=== PATIENT | female | born 1965 | race Caucasian/White ===

== ENCOUNTER 2019-05-07 13:48 | Outpatient (RCR) | payer OTHER, SELFPAY | END 2019-05-09 23:59 | disposition home or self-care (01) | LOC: SPT 13:48 | PROVIDERS: Family Provider Family Medicine; PCP Family Medicine; Referring Provider Family Medicine; Visit Provider Family Medicine | DX: M54.5 Low back pain (principal) | CPT/HCPCS: 97110; 97161 ==

== ENCOUNTER 2019-05-10 06:00 | Outpatient (RCR) | payer OTHER, SELFPAY | END 2019-06-07 23:59 | disposition home or self-care (01) | LOC: SPT 06:00 | PROVIDERS: Family Provider Family Medicine; PCP Family Medicine; Referring Provider Family Medicine; Visit Provider Family Medicine | DX: M54.5 Low back pain (principal); M25.551 Pain in right hip; M54.17 Radiculopathy, lumbosacral region | CPT/HCPCS: 97110 ==

== ENCOUNTER 2019-06-08 06:00 | Outpatient (RCR) | payer OTHER, SELFPAY | END 2019-07-08 23:59 | disposition home or self-care (01) | LOC: SPT 06:00 | PROVIDERS: Family Provider Family Medicine; PCP Family Medicine; Referring Provider Family Medicine; Visit Provider Family Medicine | DX: M54.5 Low back pain (principal); M25.551 Pain in right hip; M54.17 Radiculopathy, lumbosacral region | CPT/HCPCS: 97110 ==

== ENCOUNTER 2019-11-19 13:36 | Outpatient (CLI) | payer OTHER, SELFPAY ==
--- NOTE | 2019-11-19 13:47 | MM_ITS ---
WS: [id number] BILATERAL DIGITAL DIAGNOSTIC MAMMOGRAM WITH CAD CLINICAL INFORMATION: BREAST CALCIFICATIONS COMPARISON: TECHNIQUE: Bilateral CC and MLO. FINDINGS: The breast are composed of extremely dense tissue, which can limit the detection of small underlying mass lesions. Again seen is a loose cluster of punctate calcifications in the upper outer quadrant ri ght breast. Stable clustered group of calcifications in the mid central right breast. These appear st able since August 26, 2018 and are similar in appearance to April 12, 2016. Recommend return to annual screening mammography. No suspicious focal mass, asymmetry, calcifications, or architectural distortion. No evidence of blessing gnancy. Unremarkable left breast. MM/[place] [id number] IMPRESSION: BI-RADS: 2-Benign FOLLOW UP: 1 Year Follow-up Recommend return to annual screening mammography.
== END 2019-11-19 13:37 | disposition home or self-care (01) ==
LOC: RADSHAW 13:39
PROVIDERS: PCP Family Medicine; Visit Provider Family Medicine
DX: R92.1 Mammographic calcification found on diagnostic imaging of breast (principal)
CPT/HCPCS: 77066

== ENCOUNTER → 2020-03-13 10:07 | Outpatient (BNVA) | payer OTHER, SELFPAY | PROVIDERS: PCP Family Medicine; Visit Provider Orthopaedic Surgery | DX: Z20.828 Contact with and (suspected) exposure to other viral communicable diseases (principal); Z01.812 Encounter for preprocedural laboratory examination | CPT/HCPCS: 87635 ==

== ENCOUNTER 2020-03-18 09:50 | Day surgery (SDC) | payer OTHER, SELFPAY ==
[2020-03-17 13:12] VITALS: BMI 24.3
[2020-03-18 10:28] VITALS: BP 127/75; PULSE 62; RESP 18; TEMP 36.8; O2SAT 97
--- NOTE | 2020-03-18 10:35 | W.PM.OPSUD ---
Surgery/Procedure H&P Update DATE OF PROCEDURE: March 18, 2020 PREOP DIAGNOSIS: Left cubital tunnel syndrome, left carpal tunnel syndrome PLANNED PROCEDURE: Operation Date: 03/18/20 11:05 Proposed Procedures p Ulnar Nerve Transposition [id number] G56.22(Left) - Raghu Garza MD s Carpal Tunnel Release(Left) - Raghu Garza MD
--- NOTE | 2020-03-18 10:35 | ANES.PREANE2 ---
Pre-Anesthetic Assessment Pre-Anesthetic Assessment: Height/Weight: Height 1.78 m Weight 77.111 kg Temp Pulse Resp BP Pulse Ox 98.3 F 62 18 127/75 97 03/18/20 10:28 03/18/20 10:28 03/18/20 10:28 03/18/20 10:28 03/18/20 10:28 Preop Diagnosis: Left cubital tunnel syndrome, left carpal tunnel syndrome Proposed Procedure: Operation Date: 03/18/20 11:05 Proposed Procedures p Ulnar Nerve Transposition [id number] G56.22(Left) - Raghu Garza MD s Carpal Tunnel Release(Left) - Raghu Garza MD Familial anesthetic complications: None Was Beta Charly taken within 24 hours: Yes Last intake: Intake Last Liquid Date 03/17/20 Last Liquid Time 19:30 Last Solid Date 03/17/20 Last Solid Time 21:30 Social: Social History: No alcohol and No tobacco Exam: Pre-Anes Outpt Exam: alert, oriented x 3, clear to auscultation bilaterally and regular rate & rhythm Airway: Cervical ROM: WNL MP: 2 Dentition: Full CV/HEM: CV/HEM: HTN Neuropsych: Comments: carpal tunnel and cubital tunnel Anesthetic Plan: ASA status: 1 Anesthesia: MAC and Regional (specify below) Other: kolton block Risk of > 500 ml blood loss (7ml/kg in children): No Data Anesthesia Cardiac Studies: No Data to Display
--- NOTE | 2020-03-18 10:37 | P.HP_ITS ---
Same Day Surgery H&P Indication for Procedure/HPI DATE OF PROCEDURE: March 18, 2020 CHIEF COMPLAINT/INDICATIONFOR SURGICAL PROCEDURE: Vivienne is a 54-year-old female with numbness and pain in her left upper extremity and feelings of popping behind the medial epicondyle. EMG nerve conduction studies were obtained showing carpal tunnel syndrome and her clinical exam was thought consistent with a subluxing ulnar nerve with resulting ulnar nerve distribution paresthesias. She is scheduled for a ulnar nerve transposition and carpal tunnel release on the left PREOP DIAGNOSIS: Left cubital tunnel syndrome, left carpal tunnel syndrome PLANNED PROCEDRUE: Operation Date: 03/18/20 11:05 Proposed Procedures p Ulnar Nerve Transposition [id number] G56.22(Left) - Raghu Garza MD s Carpal Tunnel Release(Left) - Raghu Garza MD Medications/Allergies* Home Medications Medication Instructions Recorded Confirmed Type hydrochlorothiazide 12.5 mg capsule 12.5 mg PO QAM 04/29/19 03/18/20 History metoprolol tartrate 25 mg tablet 12.5 mg PO BID 04/29/19 03/18/20 History Allergies/Adverse Reactions Allergy/AdvReac Type Severity Reaction Status Date / Time No Known Allergies Allergy Verified 01/05/20 11:22 Pertinent Exam Findings alert, oriented x 3, clear to auscultation bilaterally, regular rate & rhythm, operative site marked and procedure specific exam findings (Left elbow ROM 0-140 degrees. 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
--- NOTE | 2020-03-18 10:42 | PM.OP ---
Operative Report Date of procedure: March 18, 2020 Pre-op Diagnosis: Left cubital tunnel syndrome, left carpal tunnel syndrome Post-op diagnosis: same Post-op Findings: Unstable left ulnar nerve Procedure Done: Left ulnar nerve transposition, carpal tunnel release Pathology: none sent Anesthesia: Nerve Block ([place] [address] block) Estimated blood loss (mL): 20 Tourniquet time (min): 36 Complications: None Findings: Flexion extension of the elbow the patient's ulnar nerve subluxed over the medial epicondyle. No spaces or mass occupying lesions were seen in the cubital tunnel or carpal tunnel Condition: stable Disposition: PACU Brief History: The patient has a history of a popping behind the medial epicondyle with radiating pain into her medial forearm. She had a positive Tinel's over the ulnar nerve at the elbow and carpal tunnel at the wrist. EMG nerve conduction is absent revealed severe nerve entrapment of the median nerve at the carpal tunnel. She had previous right carpal tunnel surgery years ago and did well and has elected for right carpal tunnel release and ulnar nerve transposition of her unstable ulnar nerve Procedure: The patient was taken to the operating room and given a general anesthesia. A tourniquet was inflated to 225 mmHg. A timeout was performed. A 5 cm long incision was made behind the medial epicondyle. The elbow was brought through range of motion with the ulnar nerve seem to sublux over the medial epicondyle. Dissection was accomplished bluntly under loupe magnification identifying the ulnar nerve proximally. Utilizing a hemostat the fascia over the nerve was elevated and incised proximally. Dissection was then carried distally behind the medial epicondyle and into the flexor carpi ulnaris musculature. Dissection was stopped with the first muscular branches identified. The fascia was divided over the flexor pronator musculature. Approximately 2 cm of medial intermuscular septum were dissected and the nerve reflected anteriorly in a tension-free resting place. A small fascial flap was elevated off the flexor pronator musculature with this attachment over the medial epicondyle. This was sutured to the anterior subcutaneous tissue to prevent recurrent subluxation of the nerve. Wound edges were infiltrated with 10 cc of a half percent Marcaine solution. Deep tissues were closed with 2-0 Vicryl. Subcutaneous is closed with 3-0 Vicryl. The skin was closed with a running 3-0 Prolene. Steri-Strips were applied. Xeroform gauze, 4 x 4's, compressive labral, and Alex wrap, and a sling were applied. The patient was taken recovery room in stable condition. A 3 cm long incision was made in line with the fourth ray from the distal edge of the carpal tunnel extending proximally. The subcutaneous fat and palmar fascia was divided with a scalpel blade. Under loupe magnification the ulnar neurovascular bundle was identified distally. A hemostat could be passed under the transverse carpal ligament allowing the distal 25% to be divided. A slotted guide was then passed beneath the transverse carpal ligament and the middle 50% divided. Blunt scissors were then passed over the guide freeing the proximal ligament. The tourniquet was deflated. Hemostasis provided with electrocautery. Wound edges were infiltrated with 10 cc of a half percent Marcaine solution. All wounds were irrigated with saline. Skin edges were reapproximated with 3-0 Prolene. A running stitch was placed over the medial epicondyle and interrupted stitches over the carpal tunnel. Sterile dressings were applied. Patient was placed in a sling. The patient was taken to the recovery room in stable condition
[2020-03-18] MEDS: sodium chloride 0.9% 1,000 ML 30 ML IV (10:52)
[2020-03-18 12:15] VITALS: BP 122/71; PULSE 64; RESP 18; TEMP 36.1; O2SAT 98
[2020-03-18 12:24] VITALS: BP 149/70; PULSE 65; RESP 18; O2SAT 100
== END 2020-03-18 13:14 | disposition home or self-care (01) ==
PROVIDERS: PCP Family Medicine; Visit Provider Orthopaedic Surgery
PROC: (CPT 64718; principal; 2020-03-18 11:05)
PROC: (CPT 64721; 2020-03-18 11:05)
DX: G56.22 Lesion of ulnar nerve, left upper limb (principal); G56.02 Carpal tunnel syndrome, left upper limb; I10 Essential (primary) hypertension
CPT/HCPCS: 64718; 64721; 12345; 96365; J0690; J2250; J3490; J7030

== ENCOUNTER 2020-05-03 13:47 | Outpatient (RCR) | payer OTHER, SELFPAY | END 2020-05-09 23:59 | disposition home or self-care (01) | LOC: SOT 13:47 | PROVIDERS: PCP Family Medicine; Referring Provider Orthopaedic Surgery; Visit Provider Orthopaedic Surgery | DX: Z47.89 Encounter for other orthopedic aftercare (principal) | CPT/HCPCS: 97035; 97110; 97112; 97140; 97167 ==

== ENCOUNTER 2020-05-10 06:00 | Outpatient (RCR) | payer OTHER, SELFPAY | END 2020-06-06 23:59 | disposition home or self-care (01) | LOC: SOT 06:00 | PROVIDERS: PCP Family Medicine; Referring Provider Orthopaedic Surgery; Visit Provider Orthopaedic Surgery | DX: Z47.89 Encounter for other orthopedic aftercare (principal) | CPT/HCPCS: 97022; 97035; 97110; 97112 ==

== ENCOUNTER 2021-03-09 14:26 | Emergency (ER) | payer OTHER, SELFPAY ==
[2021-03-09 14:43] VITALS: BP 144/80; PULSE 91; RESP 19; TEMP 36.4; O2SAT 100; BMI 25.1
--- NOTE | 2021-03-09 15:03 | XRR_ITS ---
PROCEDURE INFORMATION: Exam: XR Lumbosacral Spine Exam date and time: 03/09/2021 3:03 PM Age: 55 years old Clinical indication: Pain and injury or trauma; Fall; Blunt trauma (contusions or hematomas); Low back pain; Injury date: 2 weeks ago; Patient HX: Fell two weeks ago, pain started today gradually getting worse TECHNIQUE: Imaging protocol: XR of the lumbosacral spine. Views: 2 or 3 views. Total images: 3 COMPARISON: MRI Lumbar Spine w/o [id number] 12/01/2019 1:55 PM FINDINGS: Bones/joints: No visible acute osseous abnormality. Mild dextroscoliotic curvature. Pedicles intact. No visible spondylolysis or spondylolisthesis. Facet arthrosis L5/S1. Mild degenerative disc disease L5/S1. Mild spondylosis deformans. Soft tissues: Unremarkable. XR/XR lumbar spine 2-3V* [id number] IMPRESSION: Nonacute. Radiation Dose CTDIVOL = (mGy): DLP = (mGy-cm)
--- NOTE | 2021-03-09 15:03 | XRR_ITS ---
PROCEDURE INFORMATION: Exam: XR Thoracic Spine Exam date and time: 03/09/2021 3:03 PM Age: 55 years old Clinical indication: Pain and injury or trauma; Fall; Blunt trauma (contusions or hematomas); Pain in thoracic spine; Injury date: 2 weeks ago; Patient HX: Fell two weeks ago, pain started today gradually getting worse TECHNIQUE: Imaging protocol: XR of the thoracic spine. Views: 3 views. Total images: 3 COMPARISON: MRI Lumbar Spine w/o [id number] 12/01/2019 1:55 PM FINDINGS: Bones/joints: Nonacute. Pedicles intact. Minimal scoliotic curvature. Intervertebral disc space heights relatively preserved throughout. Mild degenerative disease and spondylosis deformans. No visible spondylolysis or spondylolisthesis. Soft tissues: Unremarkable. XR/XR thoracic spine 3V* [id number] IMPRESSION: Nonacute. Radiation Dose CTDIVOL = (mGy): DLP = (mGy-cm)
--- NOTE | 2021-03-09 15:04 | XRR_ITS ---
PROCEDURE INFORMATION: Exam: XR Left Hip Exam date and time: 03/09/2021 3:04 PM Age: 55 years old Clinical indication: Pain and injury or trauma; Fall; Blunt trauma (contusions or hematomas); Hip pain; Left hip; Injury date: 2 weeks ago; Patient HX: Fell two weeks ago, pain started today gradually getting worse; Additional info: Pain, fall TECHNIQUE: Imaging protocol: XR Left hip. Views: 2 or 3 views hip with pelvis when performed. Total images: 3 COMPARISON: MRI Lumbar Spine w/o [id number] 12/01/2019 1:55 PM FINDINGS: Bones/joints: No visible acute osseous abnormality, fracture, subluxation, or dislocation. No radiographically visible joint effusion. Incidental note of facet arthrosis L5/S1. Soft tissues: Soft tissues without evidence of edema, swelling, contusion, emphysema, or radiopaque foreign body. Gastrointestinal tract: Incidental note of heavy fecal residue consistent with constipation. XR/XR hip LT 2-3V wo/w pel* [id number] IMPRESSION: Nonacute. Radiation Dose CTDIVOL = (mGy): DLP = (mGy-cm)
--- NOTE | 2021-03-09 15:05 | ED_ITS ---
HPI - Extremity Problem General: Chief complaint: Extremity Injury, Upper Stated complaint: L HIP/LOW BACK PAIN: FELL 5 DAYS AGO,SX WORSENING Time Seen by Provider: 03/09/21 14:59 History of Present Illness: HPI Narrative: Patient reports history of 2 falls first 1 2 weeks ago when she tripped over a metal piece and landed on her left knee and she started hurting a couple days later in her low back. Patient fell again 3 days ago landing on the right knee and she did not hurt immediately but hurt the next day complain about pain in her left hip and her back. Says she had an MRI done a year ago told she had degenerative disc disease and she feels that she might worsen this. Was seen at [facility] and referred up here. Onset (ago): week(s) Pain Consistency: constant Location: left Severity scale (1-10): 7 Quality: aching Radiation: proximal and distal Relieving factors: immobilization Exacerbating factors: range of motion, weight bearing and walking Associated symptoms: Reports no associated symptoms; Deny chest pain, fever(s) or rash Review of Systems Const: Denies: fever(s), chills or body aches Eyes: Denies: change in vision or blurry vision ENMT: Denies: throat pain or nasal congestion Card: Denies: chest pain or dyspnea on exertion Resp: Denies: dyspnea, productive cough or non-productive cough GI: Denies: abdominal pain, nausea or vomiting Musc: Reports: back pain and joint pain (Left hip); Denies: extremity pain Skin/Breast: Denies: rash Neuro: Denies: headache(s) Psych: Denies: anxiety or depression Shane/Lymph: Denies: easy bruising Physical Exam Const: COMMON NORMALS: no acute distress, average body habitus and patient oriented x3 HENMT: COMMON NORMALS: normocephalic HEAD & SCALP: normal to inspection and normocephalic FACE & SINUS: normal facial exam Eye: COMMON NORMALS: conjunctivae normal GENERAL EYE: appearance normal, both eyes and all related structures CONJUNCTIVA: Yes conjunctivae normal Neck/C-Spine: COMMON NORMALS: no JVD Chest: COMMONS NORMALS: normal inspection of the chest Resp: COMMON NORMALS: normal respiratory effort and clear to auscultation bilaterally AUSCULTATION: clear to auscultation bilaterally Cardio: COMMON NORMALS: no JVD, regular rate and regular rhythm RATE: regular rate RHYTHM: regular rhythm GI: COMMON NORMALS: Normal to inspection, nondistended, normoactive bowel sounds present : COMMON NORMALS: Yes no CVA tenderness BLADDER/KIDNEY EXAM: Yes no CVA tenderness Back/Pelvis: COMMON NORMALS: no CVA tenderness THORACIC SPINE/UPPER BACK: Yes paraspinal muscle tenderness LUMBAR SPINE/LOWER BACK: Yes normal to inspection, Yes lumbar ROM normal and Yes paraspinal muscle tenderness Extremity: COMMON NORMALS: normal to inspection and full ROM LEFT LOWER EXTREMITY: Yes hip joint (Tenderness to anterior aspect has full range of motion.) Neuro: COMMON NORMALS: patient oriented x3 Course Vital Signs: Vital signs: Vital Signs Temperature 97.6 F 03/09/21 14:43 Pulse Rate 70 03/09/21 16:23 Respiratory Rate 18 03/09/21 16:23 Blood Pressure 121/79 03/09/21 16:23 Pulse Oximetry 98 03/09/21 16:23 MDM - Extremity (Nontraumatic) MDM Narrative: Medical decision making narrative: Patient presents with chronic back pain. Aggravated by couple falls she has had over the last 2 weeks. Patient being cared for currently by Dr. Garza and she relates that he is not helping her much with her related to her back and knees pain. Patient's x-rays were negative for any acute fractures and showed just mild degenerative disc disease most likely in the lumbar and thoracic spine. Patient is able to ambulate. Pain medication seem to help her some. Discharge Plan Discharge Patient Disposition: Home Clinical Impression: Hip pain, left Back pain Qualifiers: Back pain location: low back pain Chronicity: unspecified Back pain laterality: left Sciatica presence: without sciatica Qualified Code(s): M54.50 - Low back pain, unspecified Condition: Stable Prescriptions: New prednisone 20 mg tablet 20 mg PO DAILY Qty: 7 RF: 0 Celebrex 100 mg capsule 200 mg PO BID Qty: 20 RF: 0 No Action metoprolol tartrate 25 mg tablet 12.5 mg PO BID RF: 0 hydrochlorothiazide 12.5 mg capsule 12.5 mg PO QAM RF: 0 hydrocodone-acetaminophen 5-325 mg tablet 1 tab PO Q4H Qty: 30 RF: 0 Discharge Orders: Discharge ED (Routine); Ordered 03/09/21 Ordered By: Homero Moreland Referrals: Lucrecia Nagy MD [Primary Care Provider] - Discharge Diet: Usual diet Discharge Activity: Increase activity as tolerated Patient Instructions: Back Pain (ED), Hip Pain (ED) Activity Restrictions/Additional Instructions: Follow-up with medical provider as directed. Take medications as prescribed. Return to the ER or your medical provider if condition worsens. Please read and understand discharge instructions. If any questions ask please. Coding Level of Care Code ED Dependency Director for Chg Fwd Exam Comprehensive
[2021-03-09 15:07] VITALS: PULSE 84
[2021-03-09] MEDS: CELEcoxib 200 mg Capsule 400 MG PO (15:11)
--- NOTE | 2021-03-09 15:37 | PC.NURSE ---
pt to xray
[2021-03-09 16:23] VITALS: BP 121/79; PULSE 70; RESP 18; O2SAT 98
== END 2021-03-09 16:56 | disposition home or self-care (01) ==
PROVIDERS: Emergency Provider Nurse Practitioner Family; PCP Family Medicine
DX: M54.50 Low back pain, unspecified (principal); M25.552 Pain in left hip
CPT/HCPCS: 72072; 72100; 73502; 96365; 96367; 96375; 99283

== ENCOUNTER 2021-03-21 12:22 | Outpatient (CLI) | payer OTHER, SELFPAY ==
--- NOTE | 2021-03-21 13:05 | MM_ITS ---
WS: [id number] BILATERAL DIGITAL SCREENING MAMMOGRAPHY WITH CAD CLINICAL INFORMATION: SCREEN HISTORY: Screening mammogram. No current complaints. COMPARISON: None. TECHNIQUE: Bilateral CC and MLO views. FINDINGS: The breasts are composed of heterogeneous fibroglandular density tissue, which can limit the detectio n of small underlying mass lesions. Punctate and lucent centered calcifications. Stable clustered jacky cifications right breast. No suspicious mass, asymmetry, calcifications, or architectural distortion. No evidence of malignancy. MM/[place] [id number] IMPRESSION: BI-RADS: 2-Benign FOLLOW UP: 1 Year Follow-up Recommend return to annual screening mammography.
== END 2021-03-21 12:23 | disposition home or self-care (01) ==
LOC: RADSHAW 12:27
PROVIDERS: PCP Family Medicine; Visit Provider Family Medicine
DX: Z12.31 Encounter for screening mammogram for malignant neoplasm of breast (principal)
CPT/HCPCS: 77067

== ENCOUNTER 2021-05-25 13:49 | Outpatient (CLI) | payer OTHER, SELFPAY ==
--- NOTE | 2021-05-25 13:53 | MR_ITS ---
WS: [id number] MRI LEFT HIP without CONTRAST. COMPARISON: 03/09/2021 Multiplanar, multisequence imaging is performed without contrast. No marrow edema or fracture within the bones of the pelvis. There is a symmetric appearance of the hi p joints with very mild narrowing from osteoarthritis. No joint effusion. No fluid over the greater t rochanter. There is symmetric appearance of the muscles. No adenopathy. No marrow replacement process . Very mild loss of cartilage involving the femoral head in the acetabulum. No labral tear. MR/MR hip LT con* [id number] IMPRESSION: 1. No marrow edema or fracture LEFT hip. 2. Very minimal joint space narrowing and loss of cartilage involving the LEFT hip joint.
== END 2021-05-25 13:50 | disposition home or self-care (01) ==
LOC: RAD 13:51
PROVIDERS: PCP Family Medicine; Visit Provider Physician Assistant
DX: M25.552 Pain in left hip (principal)
CPT/HCPCS: 73721

== ENCOUNTER → 2024-07-16 13:44 | Outpatient (BNVA) | payer OTHER, SELFPAY | PROVIDERS: PCP Family Medicine; Visit Provider Podiatrist Foot & Ankle Surgery | DX: M79.671 Pain in right foot (principal); M84.30XA Stress fracture, unspecified site, initial encounter for fracture; M79.673 Pain in unspecified foot; S93.311A Subluxation of tarsal joint of right foot, initial encounter; X58.XXXA Exposure to other specified factors, initial encounter | CPT/HCPCS: 73630 ==

== ENCOUNTER 2024-07-21 11:38 | Outpatient (CLI) | payer OTHER, SELFPAY ==
--- NOTE | 2024-07-21 12:15 | MR_ITS ---
WS: [id number] EXAMINATION: MR foot RT wo con* [id number] ORDER DATE: 07/21/2024 12:26 PM HISTORY: pain in right heel CONTRAST: None. TECHNIQUE: Sagittal T1, sagittal STIR, coronal PD, coronal T2, axial T1, axial T2, and axial PD imaging with fat saturation technique. FINDINGS: Slight plantar calcaneal spurring. Diffuse soft tissue edema involving the plantar aponeurosis. Mild bone marrow edema at the calcaneal insertion. Thickening with associated soft tissue edema and fluid about the medial head plantar fascia insertion with underlying edema in the calcaneus. Findings compatible with planter fasciitis. Plantar fascia measures approximately 6 mm. Distal Achilles is normal in appearance. Normal peroneal tendons and tendon sheath. Normal extensor and flexor compartment tendons. Mild degenerative arthritis in the midfoot and forefoot. Medial and lateral malleolus appear intact. Talar dome is normal. Small joint effusion. Small amount of subchondral edema likely degenerative involving the cuboid at the cubocalcaneal articulation. MR/MR foot RT wo con* [id number] IMPRESSION: Findings compatible with plantar fasciitis involving the medial insertion with associated fluid and edema described above.
== END 2024-07-21 11:39 | disposition home or self-care (01) ==
PROVIDERS: PCP Family Medicine; Visit Provider Podiatrist Foot & Ankle Surgery
DX: M84.374A Stress fracture, right foot, initial encounter for fracture (principal); R93.6 Abnormal findings on diagnostic imaging of limbs; R60.0 Localized edema; M19.071 Primary osteoarthritis, right ankle and foot
CPT/HCPCS: 73718

== ENCOUNTER → 2024-09-15 16:58 | Outpatient (BNVA) | payer OTHER, SELFPAY | PROVIDERS: PCP Family Medicine; Visit Provider Podiatrist Foot & Ankle Surgery | DX: M72.2 Plantar fascial fibromatosis (principal); S93.311A Subluxation of tarsal joint of right foot, initial encounter; X58.XXXA Exposure to other specified factors, initial encounter | CPT/HCPCS: 36415; 85651; 86140; 86160; 86162; 86200; 86235; 86255; 86376; 86431 ==

== ENCOUNTER 2024-10-22 12:27 | Outpatient (RCR) | payer OTHER, SELFPAY | END 2024-11-06 23:59 | disposition home or self-care (01) | LOC: SPT 12:27 | PROVIDERS: Visit Provider Podiatrist Foot & Ankle Surgery | DX: M72.2 Plantar fascial fibromatosis (principal); M25.571 Pain in right ankle and joints of right foot | CPT/HCPCS: 97033; 97110; 97140; 97161 ==

== ENCOUNTER 2024-11-07 06:30 | Outpatient (RCR) | payer OTHER, SELFPAY | END 2024-12-07 23:59 | disposition home or self-care (01) | LOC: SPT 06:30 | PROVIDERS: Visit Provider Podiatrist Foot & Ankle Surgery | DX: M72.2 Plantar fascial fibromatosis (principal); M25.571 Pain in right ankle and joints of right foot | CPT/HCPCS: 97033; 97110; 97140 ==

== ENCOUNTER 2024-12-08 05:00 | Outpatient (RCR) | payer OTHER, SELFPAY | END 2024-12-29 09:55 | disposition home or self-care (01) | LOC: SPT 05:00 | PROVIDERS: Visit Provider Podiatrist Foot & Ankle Surgery | DX: M72.2 Plantar fascial fibromatosis (principal); M25.571 Pain in right ankle and joints of right foot | CPT/HCPCS: 97033; 97110; 97140 ==

== ENCOUNTER 2025-01-19 14:09 | Outpatient (CLI) | payer OTHER, SELFPAY ==
--- NOTE | 2025-01-19 14:19 | MRR_ITS ---
PROCEDURE INFORMATION: Exam: MR Right Lower Extremity Joint Without and With Contrast; Ankle Exam date and time: 01/19/2025 3:39 PM Age: 59 years old Clinical indication: Ankle; Right; History of plantar fasciitis/foot pain. Pain with walking; Additional info: Primary osteoarthritis R ankle/pain in R foot/stress FX TECHNIQUE: Imaging protocol: Magnetic resonance imaging of the right lower extremity without and with contrast. Exam focused on the ankle. Contrast material: MULTIHANCE; Contrast volume: 17 ml; Contrast route: INTRAVENOUS (IV); COMPARISON: MR foot RT wo/w con [id number] 01/19/2025 2:56 PM FINDINGS: Bones/joints: There is reactive marrow edema and enhancement within the base of the 3rd and 4th metatarsal as well as the proximal diaphysis of the 3rd and 4th metatarsal at the edge of the [id number]. LIGAMENTS: Distal tibiofibular syndesmosis: Unremarkable. No tear. Anterior talofibular ligament: Unremarkable. No tear. Posterior talofibular ligament: Unremarkable. No tear. Calcaneofibular ligament: Unremarkable. No tear. Deltoid ligament complex: Unremarkable. No tear. TENDONS: Flexor tendons of foot: Unremarkable as visualized. Tibialis posterior tendon: Unremarkable as visualized. Peroneal tendons: Unremarkable as visualized. Extensor tendons of foot: Unremarkable as visualized. Tibialis anterior tendon: Unremarkable as visualized. Achilles tendon: Unremarkable as visualized. Tarsal canal (Sinus tarsi): Unremarkable. Normal signal of the fat. Tarsal tunnel: Unremarkable. Soft tissues: There is diffuse fatty replacement and atrophy of the abductor digiti minimi muscle. Plantar fascia: There is prominent thickening and heterogenous increased T2 signal in the plantar fascia at the calcaneal attachment. There appears to be a chronic stable longitudinal split tear of the plantar fascia in its mid aspect. There is midfoot polyarticular degenerative osteoarthropathy with marginal periarticular osteophytosis present. MR/MR ankle RT wo/w con [id number] IMPRESSION: 1. Nonspecific reactive marrow changes within the base and proximal diaphysis of the 3rd and 4th metatarsal. This certainly may represent stress reaction or posttraumatic marrow edema in the appropriate clinical setting. Consider MRI of the foot as this is only partially visualized on this exam of the ankle. 2. Plantar fasciitis with prominent fascial thickening and heterogenous edema at the calcaneal attachment. 3. Midfoot polyarticular degenerative osteoarthropathy.
--- NOTE | 2025-01-19 14:26 | MRR_ITS ---
PROCEDURE INFORMATION: Exam: MR Right Lower Extremity Other Than Joint Without and With Contrast; Foot Exam date and time: 01/19/2025 2:56 PM Age: 59 years old Clinical indication: Pain; Foot; Right; Additional info: Primary osteoarthritis R ankle/pain in R foot/stress FX TECHNIQUE: Imaging protocol: Magnetic resonance imaging of the right lower extremity without and with contrast. Exam focused on the foot. Contrast material: MULTIHANCE; Contrast volume: 17 ml; Contrast route: INTRAVENOUS (IV); COMPARISON: MR foot RT wo con* [id number] 07/21/2024 12:38 PM FINDINGS: Increased signal intensity T2 weighted imaging and STIR imaging proximal shaft, proximal metaphysis and proximal shaft of the 3rd metatarsal, proximal shaft proximal metaphysis of the 4th metatarsal mild increased signal intensity proximal metaphysis and shaft of the metatarsal. Nondisplaced oblique fracture involving the proximal epiphysis and proximal metaphysis of the 3rd metatarsal. This extends through proximal articular surface into the 3rd tarsometatarsal articulation. No widening of the joint. No significant effusion. Adjacent soft tissue edema in this area. Tarsometatarsal are intact. Mild degenerative changes 1st MTP joint. MR/MR foot RT wo/w con [id number] IMPRESSION: 1. Nondisplaced oblique fracture involving the proximal metaphysis and epiphysis of the 3rd metatarsal with intra-articular extension. 2. Associated soft tissue edema.
[2025-01-19] MEDS: gadobenate dimeglumine 20 mL vial IV (15:29)
== END 2025-01-19 14:10 | disposition home or self-care (01) ==
LOC: RAD 14:09
PROVIDERS: Visit Provider Podiatrist Foot & Ankle Surgery
DX: M19.071 Primary osteoarthritis, right ankle and foot (principal); S92.334A Nondisplaced fracture of third metatarsal bone, right foot, initial encounter for closed fracture; X58.XXXA Exposure to other specified factors, initial encounter; M85.871 Other specified disorders of bone density and structure, right ankle and foot; M72.2 Plantar fascial fibromatosis
CPT/HCPCS: 73720; 73723